=== PATIENT | male | born 1975 | race Caucasian/White ===

== ENCOUNTER 2020-11-13 01:24 | Emergency (ER) | payer BC ==
[2020-11-13 01:56] LABS: HEMOGLOBIN 16.4 gm/dl (14.0-17.5); RED BLOOD COUNT 5.45 M/UL (4.20-5.50); WHITE BLOOD COUNT 8.6 K/UL (4.5-11.0)
[2020-11-13 02:12] LABS: BUN/CREATININE RATIO 15 (0-10)
[2020-11-13] MEDS ORDERED: TORADOL 10 MG T10 MG PO (03:03)
[2020-11-13] MEDS ORDERED: FLOMAX 0.4 MG0.4 MG PO (03:03)
[2020-11-13] MEDS ORDERED: ZOFRAN ODT 4 MG4 MG PO (03:03)
== END 2020-11-13 04:10 | disposition home or self-care (01) ==
LOC: ER1 01:24
PROVIDERS: Physician Assistant
DX: N13.2 Hydronephrosis with renal and ureteral calculous obstruction (principal); Z90.49 Acquired absence of other specified parts of digestive tract
CPT/HCPCS: 80053; 81001; 83690; 85025; 87086; 96374; 96375; 99284; J1885; J2405; J7030

== ENCOUNTER → 2020-11-25 | Outpatient (CLI) | payer BC ==
[~2020-11-25] MED LIST: FLOMAX 0.4 MG0.4 MG PO; TORADOL 10 MG T10 MG PO; ZOFRAN ODT 4 MG4 MG PO
== END ==
LOC: KOH-I 09:05
DX: Z86.16 Personal history of COVID-19 (principal)
CPT/HCPCS: 71046